=== PATIENT | male | born 1965 | race Caucasian/White ===

== ENCOUNTER → 2016-07-10 | Outpatient (CLI) | payer OTHER, MEDICAID | LOC: BMCIMAGING 11:06 | PROVIDERS: ATTEND Internal Medicine | DX: B18.2 Chronic viral hepatitis C (principal); I70.0 Atherosclerosis of aorta | CPT/HCPCS: 82172-90; 83010-90; 86704-90; 86708-90 ==

== ENCOUNTER 2017-05-06 01:51 | Emergency (ER) | payer OTHER, MEDICAID ==
[2017-05-06 02:01] VITALS: BP 156/87; PULSE 104; RESP 18; TEMP 97.9; O2SAT 94
[2017-05-06] MEDS ORDERED: SKIN ADHESIVE (DERMABOND) 1 EACH TP ONE (02:13)
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
== END 2017-05-06 02:30 | disposition left against medical advice (07) ==
PROC: 0HQ1XZZ Repair Face Skin, External Approach (ICD-10-PCS; principal; 2017-05-06)
DX: S01.81XA Laceration without foreign body of other part of head, initial encounter (principal); F17.200 Nicotine dependence, unspecified, uncomplicated; Y08.89XA Assault by other specified means, initial encounter; Y92.89 Other specified places as the place of occurrence of the external cause; Y99.8 Other external cause status; Y93.89 Activity, other specified

== ENCOUNTER 2018-03-03 14:49 | Emergency (ER) | payer OTHER, MEDICAID ==
[2018-03-03 14:55] VITALS: BP 117/74
[2018-03-03] MEDS ORDERED: IBUPROFEN SUSP 100 MG/5 ML UDCUP PO ONE (15:17)
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
[2018-03-03] MEDS ORDERED: IBUPROFEN 600 MG TAB PO ONE (15:22)
== END 2018-03-03 16:00 | disposition home or self-care (01) ==
PROC: 0HQFXZZ Repair Right Hand Skin, External Approach (ICD-10-PCS; principal; 2018-03-03)
DX: S61.512A Laceration without foreign body of left wrist, initial encounter (principal); F31.9 Bipolar disorder, unspecified; F60.2 Antisocial personality disorder; W26.8XXA Contact with other sharp object(s), not elsewhere classified, initial encounter; W13.2XXA Fall from, out of or through roof, initial encounter; Z59.0 Homelessness

== ENCOUNTER 2018-07-08 18:15 | Emergency (ER) | payer OTHER, MEDICAID ==
[2018-07-08] MEDS ORDERED: SULFAMETHOX/TMP 800/160 MG 1 TAB PO ONE (19:33)
== END 2018-07-08 19:39 | disposition home or self-care (01) ==
DX: S61.213A Laceration without foreign body of left middle finger without damage to nail, initial encounter (principal); L03.012 Cellulitis of left finger; X58.XXXA Exposure to other specified factors, initial encounter